=== PATIENT | male | born 1960 | race Caucasian/White ===

== ENCOUNTER 2017-12-29 21:25 | Emergency (ER) | payer BC, OTHER ==
[~2017-12-29] VITALS: Ht 177.8 cm; Wt 86.2 kg
[2017-12-29 21:39] VITALS: BP 129/97
== END 2017-12-30 00:07 | disposition left against medical advice (07) ==
LOC: ER 21:25
DX: S90.464A Insect bite (nonvenomous), right lesser toe(s), initial encounter (principal); Z53.21 Procedure and treatment not carried out due to patient leaving prior to being seen by health care provider; W57.XXXA Bitten or stung by nonvenomous insect and other nonvenomous arthropods, initial encounter; Y93.89 Activity, other specified; Y99.8 Other external cause status; Y92.89 Other specified places as the place of occurrence of the external cause
CPT/HCPCS: 73660

== ENCOUNTER 2017-12-30 15:34 | Emergency (ER) | payer OTHER | END 2017-12-30 16:23 | disposition left against medical advice (07) | LOC: ER 15:36 | DX: R52 Pain, unspecified (principal); Z53.21 Procedure and treatment not carried out due to patient leaving prior to being seen by health care provider ==